=== PATIENT | female | born 1965 | race Caucasian/White ===

== ENCOUNTER 2016-08-31 07:29 | Emergency (ER) | payer OTHER ==
[2016-08-31 07:30] VITALS: BMI 24.6
[2016-08-31 08:35] LABS: RBC URINE 2829 /hpf (0-3); URINE BILIRUBIN NEGATIVE (NEGATIVE); URINE BLOOD 3+ (NEGATIVE); URINE COLOR Red (YELLOW); URINE GLUCOSE (UA) 3+ mg/dL (Normal); URINE KETONE 1+ mg/dL (NEGATIVE); URINE LEUKOCYTE ESTERASE 2+ Leu/uL (Negative); URINE PROTEIN 2+ mg/dL (NEGATIVE); URINE UROBILINOGEN NORMAL mg/dL (0.2-1.0); WBC URINE 1333 /hpf (0-5)
[2016-08-31] MEDS ORDERED: cefTRIAXone IV 1 gm in Dextros 50 ML IVPB ONE ×2 (09:40→10:07)
[2016-08-31 10:50] VITALS: BP 108/70; PULSE 84; RESP 16; TEMP 97.9; O2SAT 98
[2016-08-31 10:51] LABS: RBC URINE 2986 /hpf (0-3); URINE BILIRUBIN NEGATIVE (NEGATIVE); URINE BLOOD 3+ (NEGATIVE); URINE GLUCOSE (UA) 3+ mg/dL (Normal); URINE KETONE 1+ mg/dL (NEGATIVE); URINE LEUKOCYTE ESTERASE 3+ Leu/uL (Negative); URINE PROTEIN 2+ mg/dL (NEGATIVE); URINE UROBILINOGEN NORMAL mg/dL (0.2-1.0); WBC URINE 1114 /hpf (0-5)
--- NOTE | 2016-08-31 11:01 | C.PDOC ---
History Of Present Illness 50-year-old female, presents to the emergency department with complaints of abdominal pain. Patient states she has been experiencing suprapubic abdominal pain that started this morning. Pain is intermittent in nature worse when urinating, described as a "crampy" sensation, and is rated 10/10. Associated symptoms include hematuria. Patient denies fevers, chills, shortness of breath, dizziness, back pain, or any other associated symptoms. No other complaints at this time. Time Seen by Provider: 08/31/16 07:54 Chief Complaint (Nursing): Female Genitourinary History Per: Patient History/Exam Limitations: no limitations Onset/Duration Of Symptoms: Days Current Symptoms Are (Timing): Still Present Severity: Moderate Past Medical History Reviewed: Historical Data, Nursing Documentation, Vital Signs Vital Signs: Last Vital Signs Temp 97.9 F 08/31/16 10:49 Pulse 84 08/31/16 10:49 Resp 16 08/31/16 10:49 BP 108/70 08/31/16 10:49 Pulse Ox 98 08/31/16 11:06 - Medical History PMH: HTN, Hyperlipidemia Family History: States: Unknown Family Hx - Social History Hx Alcohol Use: Yes Hx Substance Use: No - Immunization History Hx Tetanus Toxoid Vaccination: No Hx Influenza Vaccination: No Hx Pneumococcal Vaccination: No Review Of Systems Except As Marked, All Systems Reviewed And Found Negative. Constitutional: Negative for: Fever, Chills Cardiovascular: Negative for: Chest Pain, Palpitations Respiratory: Negative for: Shortness of Breath Gastrointestinal: Positive for: Abdominal Pain. Negative for: Nausea, Vomiting Genitourinary: Positive for: Hematuria Musculoskeletal: Negative for: Back Pain Skin: Negative for: Rash Physical Exam - Physical Exam Appears: Non-toxic, No Acute Distress Skin: Warm, Dry, No Rash Head: Atraumatic, Normacephalic Eye(s): bilateral: Normal Inspection, PERRL Nose: Normal Oral Mucosa: Moist Neck: Normal ROM Chest: Symmetrical Cardiovascular: Rhythm Regular Respiratory: Normal Breath Sounds, No Accessory Muscle Use Gastrointestinal/Abdominal: Soft, Tenderness (mild, lower-abdominal.), No Guarding, No Rebound Back: No CVA Tenderness Extremity: Normal ROM Neurological/Psych: Oriented x3, Normal Speech ED Course And Treatment O2 Sat by Pulse Oximetry: 98 Progress Note: Motrin, Pyridium, Ceftriaxone and Tylenol ordered. Pts Urine shows UTI. Disposition Counseled Patient/Family Regarding: Studies Performed, Diagnosis, Need For Followup, Rx Given - Disposition Referrals: [facility] [Outside] Disposition: HOME/ ROUTINE Disposition Time: 11:09 Condition: STABLE Additional Instructions: Follow up with your doctor, or our clinic. Prescriptions: Nitrofurantoin Macrocrystals [Macrobid] 100 mg PO BID #14 cap Phenazopyridine HCl [Pyridium] 200 mg PO TID #9 tablet Instructions: Acute Hematuria (ED), Urinary Tract Infection in Women (ED) Forms: General Discharge Instructions, Work/School/Gym Excuse - POA Present On Arrival: None - Clinical Impression Clinical Impression: Hematuria, UTI (urinary tract infection) - Scribe Statement The provider has reviewed the documentation as recorded by the Scribvinh Davila All medical record entries made by the Scribe were at my direction and personally dictated by me. I have reviewed the chart and agree that the record accurately reflects my personal performance of the history, physical exam, medical decision making, and the department course for this patient. I have also personally directed, reviewed, and agree with the discharge instructions and disposition.
[2016-08-31 11:07] LABS: URINE COLOR LIGHT RED (YELLOW)
== END 2016-08-31 11:49 | disposition home or self-care (01) ==
LOC: C.ER 07:29
DX: N39.0 Urinary tract infection, site not specified (principal); R31.9 Hematuria, unspecified
CPT/HCPCS: 81001; 84703; 87086; 99285; J0696